=== PATIENT | female | born 1990 | race Caucasian/White ===

== ENCOUNTER 2020-12-03 18:08 | Emergency (ER) | payer BC, SELFPAY ==
--- NOTE | ~2020-12-03 | XR_ITS ---
EXAMINATION: XR chest 2V 12/03/2020 18:32 INDICATION: Chest pain PROCEDURE: 2 view chest COMPARISON: 10/19/2004 FINDINGS: The lungs are clear. The cardiomediastinal silhouette is within normal limits. There are no pleural effusions. There is no pneumothorax suspected. IMPRESSION: 1: NO ACUTE CARDIOPULMONARY DISEASE. Reviewed, dictated and finalized at location A.
[2020-12-03 18:11] VITALS: BP 148/83; PULSE 83; RESP 18; TEMP 36.4; O2SAT 100
--- NOTE | 2020-12-03 18:19 | ECG_ITS ---
Measurements Intervals [facility] Rate: 76 P: 32 NH: 137 QRS: 32 QRSD: 94 T: 33 QT: 370 QTc: 418 Interpretive Statements SINUS RHYTHM INCOMPLETE RIGHT BUNDLE BRANCH BLOCK BASELINE WANDER- V3 BORDERLINE ECG Electronically Signed On 12-03-2020 19:53:05 CDT by José Pena D.O.
[2020-12-03 18:20] VITALS: BP 132/87; PULSE 77; PULSE 78; RESP 18; TEMP 36.7; O2SAT 100
[2020-12-03 18:38] LABS: Basophils Absolute Auto 0.1 K/mm3 (0.0-0.1); Basophils Percent Auto 1.1 % (0.2-1.2); Eosinophils Absolute Auto 0.2 K/mm3 (0-0.3); Eosinophils Percent Auto 2.6 % (0-4.4); Hematocrit 38.9 % (37.0-47.0); Hemoglobin 12.7 g/dL (12.0-15.0); Immature Granulocyte Absolute 0.01 K/mm3 (0.00-0.031); Immature Granulocyte Percent A 0.2 % (0-0.5); Immature Platelet Fraction Pct 16.3 % (0.9-11.2); Lymphocytes Absolute Auto 1.95 K/mm3 (0.9-3.2); Lymphocytes Percent Auto 31.7 % (18.3-44.2); Mean Corpuscular HGB Conc 32.6 g/dl (32-36); Mean Corpuscular Hemoglobin 29.5 pg (26-34); Mean Corpuscular Volume 90.5 fl (80-100); Mean Platelet Volume 13.5 fl (7.4-10.4); Monocytes Absolute Auto 0.6 K/mm3 (0.1-0.6); Monocytes Percent Auto 9.1 % (2.6-8.5); Neutrophils Absolute Auto 3.4 K/mm3 (1.3-6.7); Neutrophils Percent Auto 55.3 % (45.5-73.1); Platelet Count Result 173 k/mm3 (150-375); White Blood Count 6.2 K/mm3 (4.5-10.0)
[2020-12-03 18:46] LABS: INR 0.9; Partial Thromboplastin Time 24.8 SECONDS (22.3-36.8); Prothrombin Time 12.5 Seconds (11.1-14.7)
[2020-12-03 18:48] LABS: Anion Gap 5 mmol/L (8-16); Blood Urea Nitrogen 16 mg/dL (7-17); Calcium 8.8 mg/dL (8.4-10.2); Carbon Dioxide 25 mmol/L (22-30); Chloride 108 mmol/L (98-107); Estimated CRCL calculation 108 ml/min; Estimated Glomerular Filt Rate > 60; Glucose 103 mg/dL (65-105); Potassium 3.6 mmol/L (3.4-5.0); Sodium 138 mmol/L (137-145)
[2020-12-03] MEDS: KETOROLAC 30 MG/ML VIAL (*BKC) IV PUSH (18:57)
[2020-12-03 19:00] LABS: Troponin I < 0.012 ng/mL (0.000-0.034)
[2020-12-03 19:04] LABS: D Dimer 0.27 ug/mL (<0.48)
[2020-12-03 19:20] VITALS: BP 124/82; PULSE 71; RESP 17; O2SAT 100
--- NOTE | 2020-12-03 19:50 | ED.CHESTPAIN ---
HPI - Chest Pain General Chief Complaint: Chest Pain Stated Complaint: chest pain sent from urgent care Time Seen by Provider: 12/03/20 18:19 Source: patient Mode of arrival: ambulatory Limitations: no limitations History of Present Illness HPI narrative: This is a 30-year-old female that presents the emergency department for chest pain. Reports she was seen at the urgent care and sent here for further evaluation. Reports the pain is substernal and sharp in nature. It is worse with movement and relieved with rest. She did take some naproxen this morning with some relief. Denies fever, cough, shortness of breath, or lower extremity edema. Related Data Home Medications Medication Instructions Recorded Confirmed norethindrone-e.estradiol-iron [Lo tablet 12/03/20 Loestrin Fe] sertraline mg 12/03/20 zolpidem 12/03/20 Allergies Allergy/AdvReac Type Severity Reaction Status Date / Time codeine Allergy Mild Unknown Verified 12/03/20 18:14 Penicillins Allergy Mild Nausea Verified 12/03/20 18:14 Review of Systems Review of Systems: Narrative: CONSTITUTIONAL: Denies fever CARDIOVASCULAR: Reports chest pain. Denies palpitations, or edema. RESPIRATORY: Denies cough or dyspnea. All systems reviewed & are unremarkable except as noted in HPI and below PMFSH Past Medical History Medical History (Updated 12/03/20 @ 20:13 by Brooke Kim PA-C) History of anxiety Social History Social History (Updated 12/03/20 @ 19:51 by Brooke Kim PA-C) Smoking status: Current some day smoker Exam Narrative: Exam Narrative: GENERAL: Well-appearing, well-nourished, and in no acute distress. HEAD: Normocephalic, atraumatic. EYES: EOMI. CHEST: Clear to auscultation. No respiratory distress. No wheezes rales or rhonchi. Patient does have anterior, mid chest wall tenderness HEART: Regular rate and rhythm. No murmur heard. Normal peripheral pulses. EXTREMITIES: Normal range of motion. No edema. SKIN: Warm, dry, no rash. NEURO: No focal deficits. Alert and oriented x3. PSYCH: Normal mood and affect Course Vital Signs Vital signs: Vital Signs Temperature 97.6 F 12/03/20 18:11 Pulse Rate 83 12/03/20 18:11 Respiratory Rate 18 12/03/20 18:11 Blood Pressure 148/83 H 12/03/20 18:11 Pulse Oximetry 100 12/03/20 18:11 Temperature 98.1 F 12/03/20 18:20 Pulse Rate 71 12/03/20 19:20 Respiratory Rate 17 12/03/20 19:20 Blood Pressure 124/82 12/03/20 19:20 Pulse Oximetry 100 12/03/20 19:20 MDM - Chest Pain MDM Narrative Medical decision making narrative: Patient presents the emergency department for chest pain. Does appear to be musculoskeletal in nature. Patient is tender in the area. Reports improvement with Toradol. Her vitals are stable. CBC and metabolic panel without concerning findings. Chest x-ray is clear. EKG is without concerning changes and baseline troponin is negative. D-dimer was not elevated. Patient and family updated on case findings. She is stable and felt appropriate for further outpatient evaluation. Her heart score is a 1. She is to follow-up with primary care doctor. She was given warnings to return to the ER Lab Data Attestation: I reviewed the patient's lab results. Result diagrams: 12/03/20 18:26 12/03/20 18:26 Labs: Lab Results 12/03/20 12/03/20 12/03/20 Range/Units 18:26 18:26 18:26 WBC 6.2 (4.5-10.0) K/mm3 RBC 4.30 (4.2-5.4) M/mm3 Hgb 12.7 (12.0-15.0) g/dL Hct 38.9 (37.0-47.0) % MCV 90.5 (80-100) fl MCH 29.5 (26-34) pg MCHC 32.6 (32-36) g/dl RDW 13.0 (11.5-14.5) % Plt Count 173 (150-375) k/mm3 MPV 13.5 H (7.4-10.4) fl Immature Gran % (Auto) 0.2 (0-0.5) % Neut % (Auto) 55.3 (45.5-73.1) % Lymph % (Auto) 31.7 (18.3-44.2) % [place] % (Auto) 9.1 H (2.6-8.5) % Eos % (Auto) 2.6 (0-4.4) % Baso % (Auto) 1.1 (0.2-1.2) % Lymph # (Auto) 1.95
[2020-12-03 20:11] VITALS: BP 119/83; PULSE 68; RESP 17; TEMP 36.5; O2SAT 100
== END 2020-12-03 20:19 | disposition home or self-care (01) ==
PROVIDERS: Physician Assistant; Emergency Provider Emergency Medicine; PCP Internal Medicine
DX: R07.89 Other chest pain (principal); F41.9 Anxiety disorder, unspecified; F17.200 Nicotine dependence, unspecified, uncomplicated; I45.10 Unspecified right bundle-branch block
CPT/HCPCS: 36415; 71046; 80048; 84484; 85025; 85055; 85380; 85610; 85730; 93005; 96374; 99284; J1885

== ENCOUNTER 2022-03-05 16:28 | Emergency (ER) | payer BC, SELFPAY ==
--- NOTE | 2022-03-05 16:29 | ED.URI ---
HPI - URI/Sore Throat General Chief Complaint: Upper Respiratory Infection Stated Complaint: sore throat Time Seen by Provider: 03/05/22 16:46 Source: patient and RN notes reviewed Mode of arrival: ambulatory Limitations: no limitations History of Present Illness HPI Narrative: 31-year-old female presents to the [facility] with complaints of a sore throat for few days. Patient denies fevers, chest pain, abdominal pain. No nausea vomiting or diarrhea. Has been taking Zyrtec, use Flonase 1 time yesterday. MD elicited complaint: sore throat, rhinorrhea and nasal congestion Related Data Home Medications Medication Instructions Recorded Confirmed norethindrone 1 mg-ethinyl 1 tablet PO DAILY 12/03/20 03/05/22 estradiol 10 mcg (24)-iron 10 mcg(2) tablet (Lo Loestrin Fe) sertraline 100 mg tablet 100 mg PO DIRECTED 12/03/20 03/05/22 zolpidem 10 mg tablet 10 mg PO DAILY 12/03/20 03/05/22 Allergies Allergy/AdvReac Type Severity Reaction Status Date / Time codeine Allergy Mild Unknown Verified 03/05/22 16:42 Penicillins Allergy Mild Nausea Verified 03/05/22 16:42 Review of Systems Review of Systems: All systems reviewed & are unremarkable except as noted in HPI and below Constitutional: Constitutional: Reports no additional constitutional complaints, Denies chills and Denies fever(s) Eyes: Eyes: Reports no additional eye complaints ENT: Reports as per HPI Cardiovascular: Cardiovascular: Reports no additional cardiovascular complaints Respiratory: Respiratory: Reports no additional respiratory complaints Gastrointestinal: Gastrointestinal: Reports no additional gastrointestinal complaints Musculoskeletal: Musculoskeletal: Reports no additional musculoskeletal complaints Integumentary/Breasts: Skin/Breast: Reports system reviewed and no additional complaints, except as docu Neurologic: Reports system reviewed and no additional complaints, except as documented Psychiatric: Psychiatric: Reports no additional psychiatric complaints Allergic/Immunologic: Allergic/Immunologic: Reports no additional allergic/immunologic complaints [facility] Past Medical History Medical History (Updated 03/05/22 @ 19:47 by Zoya Kilgore APRN) History of anxiety Surgical History Surgical History (Updated 03/05/22 @ 19:45 by Zoya Kilgore APRN) No pertinent past surgical history Social History Social History (Updated 12/03/20 @ 19:51 by Brooke Kim PA-C) Smoking status: Current some day smoker Comments At the time of my signature, I reviewed and agree with the nursing past medical, surgical, social, and family history. There is no relevant family history pertinent to the patient complaint. Exam Const: General: healthy appearing, no acute distress and alert Nutritional Appearance: well nourished Orientation/consciousness: patient oriented x3 Limitations: no limitations HENMT: Head: normal to inspection Ears: external ears normal General nose exam: Normal external nose present Face and sinus: normal facial exam Throat: posterior oropharynx normal and uvula midline Eyes: General: appearance normal, both eyes and all related structures Pupils: Equal, round and reactive pupils present Neck: Neck: normal visual inspection, no lymphadenopathy and no meningeal signs Chest: Chest palpation & inspection: normal inspection of the chest Resp: Effort & Inspection: normal respiratory effort and no use of accessory muscles Auscultation: clear to auscultation bilaterally, no crackles, no rales, no rhonchi and no wheezes Cardio: Rate: regular rate Rhythm: regular rhythm Back/Spine/Pelvis: Cervical Spine: normal cervical lordosis Thoracic/Lumbar Spine: thoracic and lumbar spine normal to inspection Skin: General skin exam: normal color Rashes: no rashes Wounds: no wounds Neuro: General: patient oriented x3, moves all extremities, no meningeal signs and no focal motor deficits Cranial nerves: Yes Equal, round
[2022-03-05 16:32] VITALS: BP 137/77; PULSE 84; RESP 16; TEMP 36.3; O2SAT 100
== END 2022-03-05 17:32 | disposition home or self-care (01) ==
PROVIDERS: Emergency Provider Nurse Practitioner; PCP Internal Medicine
DX: J02.9 Acute pharyngitis, unspecified (principal); J06.9 Acute upper respiratory infection, unspecified; F17.200 Nicotine dependence, unspecified, uncomplicated; F41.9 Anxiety disorder, unspecified
CPT/HCPCS: 87081; 87880; 99213; G0463

== ENCOUNTER 2022-12-27 19:36 | Emergency (ER) | payer BC, SELFPAY ==
[2022-12-27] VITALS (19 sets, daily range): BP systolic 126–171; BP diastolic 65–109; PULSE 57–92; RESP 14–24; TEMP 37.6; O2SAT 99–100
--- NOTE | 2022-12-27 19:50 | PC.NURSE ---
Dr. Campo at bedside to assess pt.
[2022-12-27] MEDS: diphenhydrAMINE HCl INJ 50 MG/ML VIAL IV PUSH (20:01)
[2022-12-27] MEDS: SODIUM CHLORIDE 0.9% IV 1,000 ML 999 ML IV CONT (20:03)
[2022-12-27] MEDS: FAMOTIDINE 20 MG/2 ML VIAL 40 MG IV PUSH (20:03)
--- NOTE | 2022-12-27 20:06 | ED.GENADULT ---
HPI - General Adult General Chief complaint: Allergic Reaction Stated complaint: hives Time Seen by Provider: 12/27/22 19:45 History of Present Illness HPI narrative: A 32-year-old female presenting ED with an allergic reaction. a dinner at 5:36 a.m.. About 45 minutes later she developed diffuse hives over her face neck stomach and back. She believes it was due to strep although she has not had a reaction to that in the past. She has no new exposures to lotions etc.. Patient denies difficulty breathing, throat swelling, nausea vomiting or diarrhea. She does say that she has some chest heaviness although she says that she has very bad anxiety. Related Data Home Medications Medication Instructions Recorded Confirmed norethindrone 1 mg-ethinyl 1 tablet PO DAILY 12/03/20 03/05/22 estradiol 10 mcg (24)-iron 10 mcg(2) tablet (Lo Loestrin Fe) sertraline 100 mg tablet 100 mg PO DIRECTED 12/03/20 03/05/22 zolpidem 10 mg tablet 10 mg PO DAILY 12/03/20 03/05/22 Allergies Allergy/AdvReac Type Severity Reaction Status Date / Time codeine Allergy Mild Unknown Verified 12/27/22 20:08 Penicillins Allergy Mild Nausea Verified 12/27/22 20:08 [facility] Past Medical History Medical History (Updated 12/27/22 @ 20:11 by Jv Campo MD) History of anxiety Surgical History Surgical History (Updated 03/05/22 @ 19:45 by Zoya Kilgore APRN) No pertinent past surgical history Social History Social History (Updated 12/03/20 @ 19:51 by Brooke Kim PA-C) Smoking status: Current some day smoker Exam Narrative: APPEARANCE: No apparent distress. Head: atraumatic. EYES: EOMI, NOSE: Atraumatic NECK: Trachea midline RESPIRATORY: No increased rate of breathing , no wheezing CARDIOVASCULAR: RRR, no peripheral edema ABDOMINAL: Non-distended, soft tender no guarding or rebound MUSCULOSKELETAl: No obvious deformities NEURO: Alert. Moving 4/4 extremities SKIN:: Diffuse urticaria over the face neck chest and back. PSYCHIATRIC: Normal affect Course Vital Signs Vital signs: Vital Signs Temperature 99.6 F 12/27/22 19:37 Pulse Rate 92 12/27/22 19:37 Respiratory Rate 24 H 12/27/22 19:37 Blood Pressure 171/109 H 12/27/22 19:37 Pulse Oximetry 100 12/27/22 19:37 Oxygen Delivery Room Air 12/27/22 19:37 Temperature 99.6 F 12/27/22 19:37 Pulse Rate 60 12/27/22 21:17 Respiratory Rate 20 12/27/22 21:17 Blood Pressure 138/77 12/27/22 21:17 Pulse Oximetry 99 12/27/22 21:17 Oxygen Delivery Room Air 12/27/22 19:37 Medical Decision Making MDM Narrative Medical decision making narrative: -Presentation: 32-year-old female presenting with allergic reaction. She has cutaneous findings but no other evidence of anaphylaxis. She will be treated with steroids Pepcid and Benadryl. I did off for epinephrine but has the patient has severe anxiety she decided to hold off to see if the other medications would work 1st. -DDX includes but is not limited to: And anaphylaxis, allergic reaction, idiopathic urticaria -Co-morbidities complicating care: anxiety -Social determinants of health: patient works for [employer], lives with her mother Katelin -External Chart Review: none -Hx from independent Sources: mother at bedside -Discussion of Management/Consultants: none -Independent interpretation of studies: none Dx tests considered but not ordered: none -Procedures: none -Interventions: dexamethasone, Pepcid, Benadryl, 1 L normal saline -Shared decision making / Disposition: patient was monitored for several hours with improvement of her Symptoms. She will be discharged home with Benadryl and an EpiPen.. -RX EpiPen, benadryl Vital Signs Vital Signs: Vital Signs Temperature 99.6 F 12/27/22 19:37 Pulse Rate 92 12/27/22 19:37 Respiratory Rate 24 H 12/27/22 19:37 Blood Pressure 171/109 H 12/27/22 19:37 Pulse Oximetry 100 12/27/22 19:37 Oxygen Delivery Ro
== END 2022-12-27 21:50 | disposition home or self-care (01) ==
LOC: ANHED 20:37
PROVIDERS: Emergency Provider Emergency Medicine; PCP Internal Medicine
DX: T78.40XA Allergy, unspecified, initial encounter (principal); F41.9 Anxiety disorder, unspecified
CPT/HCPCS: 96361; 96374; 96375; 99284; J1100; J1200; J7030

== ENCOUNTER 2024-01-13 11:38 | Emergency (ER) | payer BC, SELFPAY ==
--- NOTE | ~2024-01-13 | XR_ITS ---
XR foot LT min 3V 01/13/2024 11:56 Indication: Left foot pain Procedure: 4 views left foot Comparison: No prior studies for comparison. Findings: There is anatomic alignment. No fracture, subluxation or dislocation. Lisfranc joint intact . No focal soft tissue abnormality. No foreign bodies. Impression: 1: No significant bone or joint abnormality. Reviewed, dictated and finalized at location B. Impression: 1: No significant bone or joint abnormality.
--- NOTE | 2024-01-13 11:38 | ED.LOWEXIN ---
HPI - Extremity Injury (Lower) General Chief Complaint: Extremity Injury, Lower Stated Complaint: Left Foot Pain Time Seen by Provider: 01/13/24 11:38 Source: patient Mode of arrival: ambulatory Limitations: no limitations History of Present Illness HPI Narrative: Bridgette is a 33-year-old female patient presenting to the clinic today with complaints of toe/distal foot pain. She reports that she was gardening over the weekend and on her knees a lot and had her toes bent forward. She is complaining of pain to the toes as well as to the distal metatarsals with some swelling. Related Data Home Medications Medication Instructions Recorded Confirmed zolpidem 10 mg tablet 10 mg PO DAILY 12/03/20 01/13/24 bupropion HCl 100 mg tablet,12 hr 1 mg PO DIRECTED 01/13/24 01/13/24 sustained-release escitalopram oxalate 10 mg tablet 10 mg DIRECTED 01/13/24 01/13/24 hydroxyzine HCl 25 mg tablet 25 mg DIRECTED 01/13/24 01/13/24 norethindrone 1 mg-ethinyl 1 tablet DIRECTED 01/13/24 01/13/24 estradiol 20 mcg (24)-iron 75 mg (4) tablet (Aurovela 24 Fe) Allergies Allergy/AdvReac Type Severity Reaction Status Date / Time codeine Allergy Mild Unknown Verified 12/27/22 20:08 Penicillins Allergy Mild Nausea Verified 12/27/22 20:08 Review of Systems Review of Systems: Pertinent positives per HPI. Patient denies any fever, chills, rash, headache, visual changes, dizziness, cough, runny nose, sore throat, shortness of breath, chest pain, palpitations, nausea, vomiting, diarrhea, constipation, abdominal pain, or any urinary issues. [facility] Past Medical History Medical History History of anxiety Surgical History Surgical History No pertinent past surgical history Social History Social History Smoking status: Current some day smoker Comments At the time of my signature, I reviewed and agree with the nursing past medical, surgical, social, and family history. There is no relevant family history pertinent to the patient complaint. Exam Narrative: General: Well-developed, well nourished, in no apparent distress Head: Normocephalic, atraumatic. Cardio: Regular rate and rhythm, s1 and s2 normal, no murmur appreciated. Resp: Clear to auscultation bilaterally, no rhonchi, rales, wheezing or rubs. Musculoskeletal: No deformity, tender to palpation over the left distal metatarsals and phalanges, mild swelling when compared to the right foot, grossly normal range of motion, muscle strength strong and equal, peripheral pulse strong, no edema, no cyanosis, normal gait and station Course Course Emergency Course: Portions of this record may have been created with voice recognition software. Level of Care: Express Care Visit Vital Signs Vital signs: Vital signs reviewed MDM - Extremity Injury (Lower) MDM Narrative Medical decision making narrative: At the time of visit patient is resting comfortably on the exam table. Patient appears to be nontoxic. Diagnostics: X-rays of the left foot are negative for any sign of fracture or malalignment. Plan: I suspect patient has toe/foot sprain. Supportive measures were discussed with the patient and they voiced understanding discharge instructions and agrees to treatment plan. Return precautions reviewed Differential Diagnosis Differential diagnosis: Likely fracture of toe and other (Foot sprain, toe sprain) Imaging Data Radiologist's impression: ITS Impressions Foot X-Ray 01/13/24 12:02 Impression: 1: No significant bone or joint abnormality. Discharge Plan Discharge Clinical Impression: Foot sprain Qualifiers: Encounter type: initial encounter Laterality: left Qualified Code(s): S93.602A - Unspecified sprain of left foot, initial encounter Patient Disposition: H
[2024-01-13 11:45] VITALS: BP 158/96; PULSE 84; RESP 16; TEMP 36.6; O2SAT 99
== END 2024-01-13 12:11 | disposition home or self-care (01) ==
PROVIDERS: Emergency Provider Nurse Practitioner Family; PCP Internal Medicine
DX: S93.602A Unspecified sprain of left foot, initial encounter (principal); X50.1XXA Overexertion from prolonged static or awkward postures, initial encounter; Y93.H2 Activity, gardening and landscaping; F41.9 Anxiety disorder, unspecified; F17.200 Nicotine dependence, unspecified, uncomplicated
CPT/HCPCS: 73630; 99213; G0463

== ENCOUNTER 2024-01-19 22:15 | Emergency (ER) | payer BC, SELFPAY ==
[2024-01-19 22:27] VITALS: BP 146/92; PULSE 98; RESP 20; TEMP 36.2; O2SAT 96
--- NOTE | 2024-01-20 02:06 | ED.LOWEXIN ---
HPI - Extremity Injury (Lower) General Chief Complaint: Extremity Injury, Lower Stated Complaint: left foot pain Time Seen by Provider: 01/20/24 00:17 Source: patient Mode of arrival: ambulatory Limitations: no limitations History of Present Illness HPI Narrative: This is a 33 year old female that presents to the ER for left foot pain after an injury sustained just prior to arrival. Reports she was chasing her pet and felt a pop with immediate pain to the left foot dorsal surface. Denies decreased ROM or numbness. Related Data Home Medications Medication Instructions Recorded Confirmed zolpidem 10 mg tablet 10 mg PO DAILY 12/03/20 01/13/24 bupropion HCl 100 mg tablet,12 hr 1 mg PO DIRECTED 01/13/24 01/13/24 sustained-release escitalopram oxalate 10 mg tablet 10 mg DIRECTED 01/13/24 01/13/24 hydroxyzine HCl 25 mg tablet 25 mg DIRECTED 01/13/24 01/13/24 norethindrone 1 mg-ethinyl 1 tablet DIRECTED 01/13/24 01/13/24 estradiol 20 mcg (24)-iron 75 mg (4) tablet (Aurovela 24 Fe) Allergies Allergy/AdvReac Type Severity Reaction Status Date / Time codeine Allergy Mild Unknown Verified 01/20/24 00:09 Penicillins Allergy Mild Nausea Verified 01/20/24 00:09 Review of Systems Review of Systems: CONSTITUTIONAL: Denies fever MUSCULOSKELETAL: Reports joint pain, and myalgia. NEUROLOGIC: Denies numbness, or weakness. All systems reviewed & are unremarkable except as noted in HPI and below PMFSH Past Medical History Medical History History of anxiety Surgical History Surgical History No pertinent past surgical history Social History Social History Smoking status: Current some day smoker Exam Narrative: GENERAL: Well-appearing, well-nourished, and in no acute distress. HEAD: Normocephalic, atraumatic. EYES: EOMI. EXTREMITIES: Normal range of motion. No edema or obvious deformity. Normal DP pulse. Normal sensation SKIN: Warm, dry, no rash. NEURO: No focal deficits. Alert and oriented x3. PSYCH: Normal mood and affect Course Vital Signs Vital signs: Vital Signs Temperature 97.1 F L 01/19/24 22:27 Pulse Rate 98 01/19/24 22:27 Respiratory Rate 20 01/19/24 22:27 Blood Pressure 146/92 H 01/19/24 22:27 Pulse Oximetry 96 01/19/24 22:27 Oxygen Delivery Room Air 01/19/24 22:27 Temperature 97.1 F L 01/19/24 22:27 Pulse Rate 98 01/19/24 22:27 Respiratory Rate 20 01/19/24 22:27 Blood Pressure 146/92 H 01/19/24 22:27 Pulse Oximetry 96 01/19/24 22:27 Oxygen Delivery Room Air 01/19/24 22:27 Procedures Orthopedic Splinting/Casting Injury #1: Splinting/Casting Date: 01/20/24 Splinting/Casting Time: 02:25 Side: left Lower Extremity Injury Location: foot Lower Extremity Immobilizer: Junior wrap Pre-Procedure Neuro Vascular Exam: normal Post-Procedure Neuro Vascular Exam: normal Other Orthopedic Equipment: crutches MDM - Extremity Injury (Lower) MDM Narrative Medical decision making narrative: Patient presents to the emergency department for left foot pain after an injury today. She is neurovascularly intact. Left foot x-rays without acute osseous abnormalities. Patient updated on her workup and agrees with plan of care. Instructed on care of foot sprain. She is to follow up with her primary provider. She was given warnings to return to the ER Differential Diagnosis Differential diagnosis: Likely other (foot fracture, foot sprain) Imaging Data My impression: Left foot x-ray: No acute osseous abnormalities Critical Care Time Critical Care Time Critical Care Time: No Discharge Plan Discharge Clinical Impression: Foot sprain Qualifiers: Encounter type: initial encounter Laterality: left Qualified Code(s): S93.602A -
[2024-01-20 03:01] VITALS: BP 139/75; PULSE 67; RESP 15; TEMP 36.8; O2SAT 99
== END 2024-01-20 03:02 | disposition home or self-care (01) ==
PROVIDERS: Emergency Provider Physician Assistant
DX: S93.602A Unspecified sprain of left foot, initial encounter (principal); F41.9 Anxiety disorder, unspecified; F17.200 Nicotine dependence, unspecified, uncomplicated; X50.9XXA Other and unspecified overexertion or strenuous movements or postures, initial encounter
CPT/HCPCS: 73630; 99283

== ENCOUNTER 2024-02-09 16:56 | Outpatient (CLI) | payer BC, SELFPAY | END 2024-02-09 16:57 | disposition home or self-care (01) | LOC: ANHLAB 16:57 | PROVIDERS: Visit Provider Student in an Organized Health Care Education/Training Program | DX: R23.2 Flushing (principal) | CPT/HCPCS: 36415; 84443 ==

== ENCOUNTER 2024-07-20 19:28 | Emergency (ER) | payer BC, SELFPAY ==
--- NOTE | ~2024-07-20 | XR_ITS ---
EXAMINATION: XR chest 2V Exam Date/Time: 07/20/2024 19:35 CDT HISTORY: cough, chest pain with inspiration Comparison: 12/03/2020. RESULT: Lines, tubes, and devices: None. Lungs and pleura: Clear. Cardiomediastinal silhouette: Stable. Other: No acute osseous or upper abdominal finding. IMPRESSION: No acute cardiopulmonary process. Reviewed, dictated and finalized at location K.
--- NOTE | 2024-07-20 19:35 | ED.URI ---
HPI - URI/Sore Throat General Chief Complaint: Upper Respiratory Infection Stated Complaint: Sinus Time Seen by Provider: 07/20/24 20:05 History of Present Illness HPI Narrative: Patient presents with complaints of 10 days of sinus congestion, she reports a few days ago she felt as though it moved into her chest. She now reports sinus pain and pressure, chest congestion, productive cough. She reports chills yesterday, says she is feeling worse instead of better. She has been taking multiple [id number] medications with moderate relief. She is not in any distress at this time Related Data Home Medications Medication Instructions Recorded Confirmed zolpidem 10 mg tablet 10 mg PO HS 12/03/20 07/20/24 bupropion HCl 100 mg tablet,12 hr 1 mg PO DIRECTED 01/13/24 07/20/24 sustained-release escitalopram oxalate 10 mg tablet 10 mg PO DIRECTED 01/13/24 07/20/24 hydroxyzine HCl 25 mg tablet 25 mg PO DIRECTED 01/13/24 07/20/24 Allergies Allergy/AdvReac Type Severity Reaction Status Date / Time codeine Allergy Mild Unknown Verified 07/20/24 19:46 Penicillins Allergy Mild Nausea Verified 07/20/24 19:46 shrimp Allergy Anaphylactic Verified 07/20/24 20:11 Shock Review of Systems Review of Systems: All systems reviewed & are unremarkable except as noted in HPI and below Constitutional: Constitutional: Reports no additional constitutional complaints ENT: Reports system reviewed and no additional complaints, except as documented, Reports as per HPI, Reports sinus pain and Reports sinus pressure Cardiovascular: Cardiovascular: Reports no additional cardiovascular complaints Respiratory: Respiratory: Reports no additional respiratory complaints, Reports chest congestion and Reports cough Gastrointestinal: Gastrointestinal: Reports no additional gastrointestinal complaints [facility], [facility] Past Medical History Medical History (Updated 07/20/24 @ 20:10 by Amira Sosa APRN) History of anxiety Surgical History Surgical History H/O foot surgery Social History Social History Smoking status: Current some day smoker Alcohol intake: current Substance use: never Do You Feel Safe in your Home?: Yes Lack of Transportation: No Lack of Food: Never True Current Housing: I Have Housing Concerned About Future Housing: No Difficulty Paying Gas/Electric Bills: No Difficulty Paying for Meds: No Currently Unemployed: No Education: Trade/Vocational Certificate Difficulty w/ Childcare or Family Care: No Living arrangements: with family Occupation/Education: occupation Additional occupation/education comments: [employer] Gender identity (if verbalized by the patient): Female Exam Const: General: cooperative, no acute distress, alert and awake Orientation/consciousness: oriented to person, oriented to place and oriented to time HENMT: Head: normal to inspection Ears: TM abnormal dull and with fluid behind the TM Face/Nose/Sinus: sinus tenderness Mouth: Yes moist mucous membranes Throat: posterior oropharynx normal Resp: Effort & Inspection: normal respiratory effort and able to speak in complete sentences Auscultation: clear to auscultation bilaterally, no crackles, no rales, no rhonchi and no wheezes Cardio: Palpation: normal PMI Rate: regular rate Rhythm: regular rhythm Heart sounds: S1 normal heart sound present and S2 normal heart sound present Neuro: General: oriented to person, oriented to place and oriented to time Cranial nerves: Yes CN's II-XII intact bilaterally Psych: Appearance: grossly normal Thought process: Normal thought process present Insight: Good insight present (Psych) Judgement: Good judgement present (Psych) Course Course Level of Care: Express Care Visit MDM - URI/Sore Throat MDM Narrative Medical decision making narrative: Patient nontoxic appearing. Negative chest x-ray. History and exam consistent with sinusitis. Treat his same. Follow with primary care provider. Emergency department for new or worse symptoms. Discharge instructions reviewed with patient, as well as provided in writing per nursing staff. The instructions also include specific and strict return/GO TO THE ER as well as f/u information. All questions have been answered, and the patient deny any further questions with discharge and discharge plan. Some parts of this dictation were generated by voice recognition software and may contain typographical and/or grammatical inaccuracies. Differential Diagnosis Differential diagnosis: Likely upper respiratory infection, sinusitis, viral infection and influenza Imaging Data Attestation: I personally reviewed and interpreted this imaging study as follows: My impression: Negative Radiologist's impression: No acute cardiopulmonary process Discharge Plan Discharge Clinical Impression: Sinusitis Qualifiers: Sinusitis location: maxillary Chronicity: acute Recurrence: not specified as recurrent Qualified Code(s): J01.00 - Acute maxillary sinusitis, unspecified Patient Disposition: Home, Self-Care Condition: Stable Instructions: Antibiotic Form, Sinusitis (ED) Additional Instructions: Take medications as prescribed. Follow with primary care provider. Emergency department for new or worse symptoms Patient Language: Bulgarian Prescriptions: New doxycycline monohydrate 100 mg capsule 100 mg PO BID Qty: 14 0RF doxycycline monohydrate 100 mg capsule 100 mg PO BID Qty: 14 0RF No Action bupropion HCl 100 mg tablet sustained-release 12 hr 1 mg PO DIRECTED escitalopram oxalate 10 mg tablet 10 mg PO DIRECTED hydroxyzine HCl 25 mg tablet 25 mg PO DIRECTED epinephrine 0.3 mg/0.3 mL auto-injector 0.3 mg IM ONCE Qty: 2 0RF Rx Instructions: as a single dose; may repeat once diphenhydramine HCl [Benadryl] 25 mg capsule 25 mg PO TID PRN (Reason: allergic reaction) Qty: 30 0RF zolpidem 10 mg tablet 10 mg PO HS Aurovela 24 Fe 1 mg-20 mcg (24)/75 mg (4) tablet 1 tablet PO ONCE Qty: 84 3RF Follow-up/Referrals: Joseph,LISA Pool [Primary Care Provider] - 2 Weeks
== END 2024-07-20 20:15 | disposition home or self-care (01) ==
PROVIDERS: Emergency Provider Nurse Practitioner Family; PCP Physician Assistant
DX: J01.00 Acute maxillary sinusitis, unspecified (principal); F17.200 Nicotine dependence, unspecified, uncomplicated; F41.9 Anxiety disorder, unspecified
CPT/HCPCS: 71046; 99213; G0463

== ENCOUNTER 2024-08-24 08:08 | Emergency (ER) | payer BC, SELFPAY ==
--- NOTE | 2024-08-24 08:10 | ED_ITS ---
HPI - URI/Sore Throat General Chief Complaint: Upper Respiratory Infection Stated Complaint: Cough Time Seen by Provider: 08/24/24 08:09 Source: patient Mode of arrival: ambulatory Limitations: no limitations History of Present Illness HPI Narrative: Patient is a 34-year-old female who presents with 3 days of cough that is worse at night, body aches and chills. Patient reports cough is intermittently productive. Patient reports coughing fits. Has been taking Tylenol and ibuprofen. Denies any nausea, vomiting, diarrhea. Related Data Home Medications Medication Instructions Recorded Confirmed zolpidem 10 mg tablet 10 mg PO HS 12/03/20 08/24/24 bupropion HCl 100 mg tablet,12 hr 1 mg PO DIRECTED 01/13/24 08/24/24 sustained-release escitalopram oxalate 10 mg tablet 10 mg PO DIRECTED 01/13/24 08/24/24 hydroxyzine HCl 25 mg tablet 25 mg PO DIRECTED 01/13/24 08/24/24 lisinopril 20 mg tablet 20 mg PO DAILY 08/24/24 08/24/24 Allergies Allergy/AdvReac Type Severity Reaction Status Date / Time codeine Allergy Mild Unknown Verified 08/24/24 08:14 Penicillins Allergy Mild Nausea Verified 08/24/24 08:14 shrimp Allergy Anaphylactic Verified 08/24/24 08:14 Shock Review of Systems Review of Systems: All systems reviewed & are unremarkable except as noted in HPI and below Constitutional: Constitutional: Reports body ache(s), Reports chills, Denies fatigue, Denies fever(s), Denies headache(s), Denies malaise and Denies weakness Eyes: Eyes: Denies blurry vision, Denies itchy eyes and Denies loss of vision ENT: Denies otalgia, Denies headache(s), Reports nasal congestion, Denies sinus pain and Denies sore throat Cardiovascular: Cardiovascular: Denies chest pain, Denies irregular heart rhythm and Denies dyspnea Respiratory: Respiratory: Reports cough and Denies dyspnea Gastrointestinal: Gastrointestinal: Denies abdominal pain, Denies diarrhea, Denies nausea and Denies vomiting Musculoskeletal: Musculoskeletal: Denies back pain, Denies myalgias and Denies arthralgias Integumentary/Breasts: Skin/Breast: Denies pruritus and Denies rash Neurologic: Denies headache(s), Denies loss of vision and Denies weakness Psychiatric: Psychiatric: Reports no additional psychiatric complaints Endocrine: Endocrine: Denies fatigue Allergic/Immunologic: Allergic/Immunologic: Denies itchy eyes PMFSH Past Medical History Medical History History of anxiety Surgical History Surgical History H/O foot surgery Social History Social History Smoking status: Current some day smoker Alcohol intake: current Substance use: never Do You Feel Safe in your Home?: Yes Lack of Transportation: No Lack of Food: Never True Current Housing: I Have Housing Concerned About Future Housing: No Difficulty Paying Gas/Electric Bills: No Difficulty Paying for Meds: No Currently Unemployed: No Education: Trade/Vocational Certificate Difficulty w/ Childcare or Family Care: No Living arrangements: with family Occupation/Education: occupation Additional occupation/education comments: [employer] Gender identity (if verbalized by the patient): Female Comments At time of signature, agree with nursing past medical, surgical, social and family history. There is no relevant family history pertinent to the presenting complaint. Exam Const: General: cooperative, healthy appearing, comfortable, no acute distress and well nourished Nutritional Appearance: well nourished Orientation/consciousness: patient oriented x3 Limitations: no limitations HENMT: Head: normal to inspection, normocephalic and atraumatic Ears: hearing grossly normal bilaterally, external ears normal, TM's normal bilaterally, EAC's normal and no periauricular adenopathy Face/Nose/Sinus: Normal external nose present, Abnormal mucous membranes and turbinates present erythematous bilateral and diffuse, normal facial exam, sinuses nontender and face symmetric Face and sinus: normal facial exam, sinuses nontender and face symmetric Mouth: Yes Normal oral and palatal mucosa present, Yes lip normal, Yes tongue normal, Yes Normal salivary glands and ducts present, Yes oropharynx normal and Yes moist mucous membranes Teeth and gingiva: dentition normal Throat: posterior oropharynx normal, tonsils normal, uvula midline and postnasal drainage Eyes: General: appearance normal, both eyes and all related structures Alignment and Position: alignment normal and position normal Periorbital: periorbital findings normal Eyelids: eyelids normal Pupils: Equal, round and reactive pupils present Neck: Neck: normal visual inspection, full ROM, no lymphadenopathy and supple Chest: Chest palpation & inspection: normal inspection of the chest and normal palpation of entire chest wall Resp: Effort & Inspection: normal respiratory effort and able to speak in complete sentences Auscultation: clear to auscultation bilaterally, no crackles, no rales, no rhonchi and no wheezes Cardio: Rate: regular rate Rhythm: regular rhythm Heart sounds: S1 normal heart sound present and S2 normal heart sound present GI: Inspection: normal to inspection Skin: General skin exam: normal color and no rashes or lesions noted Neuro: General: patient oriented x3 and moves all extremities Cranial nerves: Yes Equal, round and reactive pupils present Speech: normal speech Gait exam (Neuro): Normal gait present Extrem: General: normal to inspection, full ROM and no edema Psych: Appearance: grossly normal and well kempt Mental Status: mental status grossly normal Speech and movement: Normal speech and movement present Affect: normal affect Attitude: cooperative Thought process: Normal thought process present Course Course Emergency Course: Patient is aware of diagnosis, understands and agrees to treatment plan. Anticipatory guidance given. Patient agrees to follow-up as directed and is aware of reasons to seek care at the emergency department. Portions of this record may have been created with voice recognition software Level of Care: Express Care Visit Vital Signs Vital signs: Vital Signs Temperature 36.6 C 08/24/24 08:16 Pulse Rate 94 08/24/24 08:16 Respiratory Rate 16 08/24/24 08:16 Blood Pressure 141/89 H 08/24/24 08:16 Pulse Oximetry 98 08/24/24 08:16 Oxygen Delivery Room Air 08/24/24 08:16 Temperature 36.6 C 08/24/24 08:17 Pulse Rate 94 08/24/24 08:17 Respiratory Rate 16 08/24/24 08:17 Blood Pressure 141/89 H 08/24/24 08:17 Pulse Oximetry 98 08/24/24 08:17 Oxygen Delivery Room Air 08/24/24 08:17 Reviewed MDM - URI/Sore Throat MDM Narrative Medical decision making narrative: Discharge instructions reviewed with patient, as well as provided in writing per nursing staff. The instructions also include specific and strict return/GO TO THE ER as well as f/u information. All questions have been answered, and the patient deny any further questions with discharge and discharge plan. Differential diagnosis considered: Viveros virus, strep pharyngitis, allergic rhinitis, upper respiratory tract infection, sinusitis, rhinosinusitis, nasopharyngitis. viral pharyngitis, otitis media, otitis externa, otitis effusion, foreign body, cerumen impaction, viral syndrome, and influenza.? Exam findings show no acute concerns or changes; patient is non-toxic appearing and is in no distress.? Patient is appropriate for outpatient treatment and follow- up.? Medical Records Attestation: I reviewed the patient's medical records. Lab Data Attestation: I reviewed the patient's lab results. Labs: Lab Results 08/24/24 Range/Units 08:41 POC Influenza A Ag Negative (Negative) POC Influenza B Ag Negative (Negative) POC SARS CoV-2 Ag Negative (Negative) Discharge Plan Discharge Clinical Impression: Upper respiratory infection Qualifiers: URI type: unspecified viral URI Qualified Code(s): J06.9 - Acute upper respiratory infection, unspecified Patient Disposition: Home, Self-Care Condition: Stable Instructions: Upper Respiratory Infection (ED) Additional Instructions: Your Covid and flu are both negative Your symptoms are likely due to a viral illness, which is not treated with antibiotics. Viral symptoms can be present for up to a few weeks. -Alternate Tylenol and Motrin per package directions for fever or pain. -Antihistamine medication such as Benadryl/Zyrtec at night and Claritin/Kiley during the day can help improve symptoms. -Use Flonase twice a day for 5 days then daily to help reduce the inflammation and dry up your sinuses. -You can also use Sudafed behind the pharmacy counter(12 or 24 hour). Be sure to drink plenty of water with these medications at least 8 ounces with every dose and it is important to drink 8 to 10 glasses of water per day. Water is a natural decongestant -Eat and drink things that are easy to swallow, like tea or soup, or popsicles. -Oral rinses such as: Salt water gargles and/or may use topical anesthetic (eg. Chloraseptic spray) or lozenges to relieve dryness or throat pain). -Frequent hand washing or hand depot agent is one of the best ways to prevent spread of infection. -Using a vaporizer or humidifier at night will also help thin secretions and help with coughing up phlegm. -Follow up with primary care provider in 3-5 days if condition is not improving - For new or worsening symptoms go directly to the nearest ER Your blood pressure was elevated above 120/80 today at Urgent Care. This puts you above the threshold for follow up visit with a primary care provider. High blood pressure does not usually cause any symptoms, however it may lead to kidney failure, stroke, heart disease just to name a few if untreated . Many people are anxious when seeing a provider or nurse. As a result, you are not diagnosed with hypertension at this time unless your blood pressure is persistently high at two office visits at least one week apart. Some things that can help lower blood pressure are lifestyle modifications, such as light exercise, decreased salt in diet, and weight loss. It is important to follow up with a PCP about this within 1 week. Prescriptions: New benzonatate 100 mg capsule 100 mg PO BID PRN (Reason: cough) Qty: 14 0RF albuterol sulfate 90 mcg/actuation HFA aerosol inhaler 2 puff inhalation QID PRN (Reason: shortness of breath or wheezing) Qty: 6.7 0RF (DME) Aerochamber MV Spacer See Rx Instructions .Route Qty: 1 0RF Rx Instructions: As directed No Action bupropion HCl 100 mg tablet sustained-release 12 hr 1 mg PO DIRECTED escitalopram oxalate 10 mg tablet 10 mg PO DIRECTED hydroxyzine HCl 25 mg tablet 25 mg PO DIRECTED lisinopril 20 mg tablet 20 mg PO DAILY epinephrine 0.3 mg/0.3 mL auto-injector 0.3 mg IM ONCE Qty: 2 0RF Rx Instructions: as a single dose; may repeat once diphenhydramine HCl [Benadryl] 25 mg capsule 25 mg PO TID PRN (Reason: allergic reaction) Qty: 30 0RF zolpidem 10 mg tablet 10 mg PO HS Aurovela 24 Fe 1 mg-20 mcg (24)/75 mg (4) tablet 1 tablet PO ONCE Qty: 84 3RF Follow-up/Referrals: Joseph,LISA Pool [Primary Care Provider] - 3 Days Time of Disposition: 08:56
[2024-08-24 08:16] VITALS: BP 141/89; PULSE 94; RESP 16; TEMP 36.6; O2SAT 98
[2024-08-24 08:17] VITALS: BP 141/89; PULSE 94; RESP 16; TEMP 36.6; O2SAT 98
[2024-08-24 08:43] LABS: EDCOVIDSCREEN Negative (Negative); EDINFLUASCREEN Negative (Negative); EDINFLUBSCREEN Negative (Negative)
== END 2024-08-24 09:10 | disposition home or self-care (01) ==
PROVIDERS: Emergency Provider Nurse Practitioner Family; PCP Physician Assistant
DX: J06.9 Acute upper respiratory infection, unspecified (principal); Z20.822 Contact with and (suspected) exposure to COVID-19; F41.9 Anxiety disorder, unspecified; F17.200 Nicotine dependence, unspecified, uncomplicated
CPT/HCPCS: 87426; 87804; 99213; G0463

== ENCOUNTER 2024-08-26 08:08 | Emergency (ER) | payer BC, SELFPAY ==
--- NOTE | ~2024-08-26 | XR_ITS ---
EXAMINATION: XR chest 2V DATE: 08/26/2024 08:29 INDICATION: Cough and shortness of breath. TECHNIQUE: Frontal and lateral views of the chest were obtained. COMPARISON: Chest 2 views 07/20/2024 FINDINGS: There are airspace opacities in right lower lobe, consistent with pneumonia. No pleural eff usion or pneumothorax. The heart size is normal. IMPRESSION: 1. Right lower lobe pneumonia. Reviewed, dictated and finalized at location A. [facility] [employer]
--- NOTE | 2024-08-26 08:12 | ED_ITS ---
HPI - URI/Sore Throat General Chief Complaint: Upper Respiratory Infection Stated Complaint: cough,breathing issue Time Seen by Provider: 08/26/24 08:09 Source: patient Mode of arrival: ambulatory Limitations: no limitations History of Present Illness HPI Narrative: Bridgette is a 34-year-old female patient presenting to the clinic today with complaints of cough and shortness of breath times x6 days. She reports pro ductive cough with green-yellow phlegm. Was seen in the clinic 2 days ago and given prescription for Tessalon Perles and albuterol inhaler. At that time her COVID and influenza testing was negative. She denies any fevers, chills, or body aches. Does have some increased shortness of breath. MD elicited complaint: sore throat and nasal congestion Related Data Home Medications Medication Instructions Recorded Confirmed zolpidem 10 mg tablet 10 mg PO HS 12/03/20 08/26/24 bupropion HCl 100 mg tablet,12 hr 1 mg PO DIRECTED 01/13/24 08/26/24 sustained-release escitalopram oxalate 10 mg tablet 10 mg PO DIRECTED 01/13/24 08/26/24 hydroxyzine HCl 25 mg tablet 25 mg PO DIRECTED 01/13/24 08/26/24 lisinopril 20 mg tablet 20 mg PO DAILY 08/24/24 08/26/24 Allergies Allergy/AdvReac Type Severity Reaction Status Date / Time shrimp Allergy Severe Anaphylactic Verified 08/26/24 08:12 Shock Penicillins Allergy Mild Nausea Verified 08/26/24 08:12 codeine Allergy Unknown Unknown Verified 08/26/24 08:12 Review of Systems Review of Systems: Pertinent positives per HPI. Patient denies any fever, chills, rash, headache, visual changes, dizziness, cough, shortness of breath, chest pain, palpitations, nausea, vomiting, diarrhea, constipation, abdominal pain, or any urinary issues. [facility] Past Medical History Medical History History of anxiety Surgical History Surgical History H/O foot surgery Social History Social History Smoking status: Current some day smoker Alcohol intake: current Substance use: never Do You Feel Safe in your Home?: Yes Lack of Transportation: No Lack of Food: Never True Current Housing: I Have Housing Concerned About Future Housing: No Difficulty Paying Gas/Electric Bills: No Difficulty Paying for Meds: No Currently Unemployed: No Education: Trade/Vocational Certificate Difficulty w/ Childcare or Family Care: No Living arrangements: with family Occupation/Education: occupation Additional occupation/education comments: [employer] Gender identity (if verbalized by the patient): Female Comments At the time of my signature, I reviewed and agree with the nursing past medical, surgical, social, and family history. There is no relevant family history pertinent to the patient complaint. Exam Narrative: General: Well-developed, well nourished, in no apparent distress Head: Normocephalic, atraumatic Eyes: Pupils equally round and reactive to light bilaterally, EOM intact, sclera and conjunctive clear, no discharge, lids normal Ears: TMs intact and clear, ear canals clear, no drainage, grossly hearing normal. Nose: Nares patent, no discharge, no inflammation, no sinus tenderness. Mouth: Oral pharynx without lesions or masses, good dentition, MMM. Neck: Supple, trachea midline, no enlargement of anterior or posterior cervical nodes, no thyroid masses or goiter palpable. Cardio: Regular rate and rhythm, s1 and s2 normal, no murmur appreciated. Resp: Clear to auscultation bilaterally, no rhonchi, rales, wheezing or rubs Course Course Emergency Course: Portions of this record may have been created with voice recognition software. Level of Care: Express Care Visit Vital Signs Vital signs: Vital Signs Temperature 36.7 C 08/26/24 08:14 Pulse Rate 91 08/26/24 08:14 Respiratory Rate 16 08/26/24 08:14 Blood Pressure 148/86 H 08/26/24 08:14 Pulse Oximetry 98 08/26/24 08:14 Oxygen Delivery Room Air 08/26/24 08:14 Temperature 36.7 C 08/26/24 08:14 Pulse Rate 91 08/26/24 08:14 Respiratory Rate 16 08/26/24 08:14 Blood Pressure 148/86 H 08/26/24 08:14 Pulse Oximetry 98 08/26/24 08:14 Oxygen Delivery Room Air 08/26/24 08:14 Vital signs reviewed MDM - URI/Sore Throat MDM Narrative Medical decision making narrative: At the time of visit patient is resting comfortably on the exam table. Patient appears to be nontoxic. Diagnostics: Chest x-ray shows right lower lobe pneumonia. Plan: Patient's right lower lobe pneumonia. Will place patient on Levaquin. Supportive measures were discussed with the patient and they voiced understanding discharge instructions and agrees to treatment plan. Return precautions reviewed Differential Diagnosis Differential diagnosis: Likely upper respiratory infection, otitis media, sinusitis, viral infection, bronchitis, influenza, pharyngitis and other (COVID) Imaging Data Radiologist's impression: ITS Impressions Chest X-Ray 08/26/24 08:38 IMPRESSION: 1. Right lower lobe pneumonia. Discharge Plan Discharge Clinical Impression: Right lower lobe pneumonia Qualifiers: Pneumonia type: due to unspecified organism Qualified Code(s): J18.9 - Pneumonia, unspecified organism Patient Disposition: Home, Self-Care Condition: Stable Instructions: Antibiotic Form, Pneumonia (ED) Additional Instructions: Take prescription medications only as prescribed-Levaquin Hold taking hydroxyzine while taking the Levaquin Increase fluids and stay well hydrated Tylenol/motrin for pain/fever Flonase and OTC antihistamines as directed Vicks vapor rub to open sinuses Sinus rinses for congestion Cepacol spray, cough drops, throat lozenges, warm tea with honey/lemon, gargle salt water to soothe throat BRAT diet for diarrhea Clear liquids x 24 hours then advance as tolerated for nausea/vomiting Go to the ED if you develop a worsening in your condition- high fever not controlled by Tylenol or Motrin, dehydration, weakness, lethargy, shortness of breath, or chest pain. Follow up with your PCP in 3-5 days if symptoms persist. Prescriptions: New levofloxacin 750 mg tablet 750 mg PO DAILY 7 Days Qty: 7 0RF No Action bupropion HCl 100 mg tablet sustained-release 12 hr 1 mg PO DIRECTED escitalopram oxalate 10 mg tablet 10 mg PO DIRECTED hydroxyzine HCl 25 mg tablet 25 mg PO DIRECTED lisinopril 20 mg tablet 20 mg PO DAILY benzonatate 100 mg capsule 100 mg PO BID PRN (Reason: cough) Qty: 14 0RF albuterol sulfate 90 mcg/actuation HFA aerosol inhaler 2 puff inhalation QID PRN (Reason: shortness of breath or wheezing) Qty: 6.7 0RF (DME) Aerochamber MV Spacer See Rx Instructions .Route Qty: 1 0RF Rx Instructions: As directed epinephrine 0.3 mg/0.3 mL auto-injector 0.3 mg IM ONCE Qty: 2 0RF Rx Instructions: as a single dose; may repeat once diphenhydramine HCl [Benadryl] 25 mg capsule 25 mg PO TID PRN (Reason: allergic reaction) Qty: 30 0RF zolpidem 10 mg tablet 10 mg PO HS Aurovela 24 Fe 1 mg-20 mcg (24)/75 mg (4) tablet 1 tablet PO ONCE Qty: 84 3RF Follow-up/Referrals: Joseph,LISA Pool [Primary Care Provider] - Stand Alone Forms: Work/School Release IP Time of Disposition: 08:46 Quality NIHSS Nursing Documentation ED NIHSS nursing documentation: reviewed/agree
[2024-08-26 08:14] VITALS: BP 148/86; PULSE 91; RESP 16; TEMP 36.7; O2SAT 98
== END 2024-08-26 08:52 | disposition home or self-care (01) ==
PROVIDERS: Emergency Provider Nurse Practitioner Family; PCP Physician Assistant
DX: J18.1 Lobar pneumonia, unspecified organism (principal); F17.200 Nicotine dependence, unspecified, uncomplicated; F41.9 Anxiety disorder, unspecified
CPT/HCPCS: 71046; 99213; G0463

== ENCOUNTER 2024-12-28 14:26 | Emergency (ER) | payer BC, SELFPAY ==
--- NOTE | 2024-12-28 14:30 | ED.URI ---
HPI - URI/Sore Throat General Chief Complaint: Upper Respiratory Infection Stated Complaint: Sinus/Ears Irritation Time Seen by Provider: 12/28/24 14:38 Source: patient, RN notes reviewed and old records reviewed Mode of arrival: ambulatory Limitations: no limitations History of Present Illness HPI Narrative: 34-year-old female presents to the [facility] with 3 day history of sinus congestion, ear discomfort. Denies fevers. Has taken naproxen, ibuprofen, Zyrtec D and Flonase. Patient most concerned that she has an ear infection. Treatments prior to arrival: acetaminophen, ibuprofen and cold medicine Related Data Home Medications ?Medication ?Instructions ?Recorded ?Confirmed ?Last Taken ?Type zolpidem 10 mg tablet 10 mg PO HS 12/03/20 08/26/24 Unknown History bupropion HCl 100 mg tablet,12 hr 1 mg PO DIRECTED 01/13/24 08/26/24 Unknown History sustained-release escitalopram oxalate 10 mg tablet 10 mg PO DIRECTED 01/13/24 08/26/24 Unknown History hydroxyzine HCl 25 mg tablet 25 mg PO DIRECTED 01/13/24 08/26/24 Unknown History lisinopril 20 mg tablet 20 mg PO DAILY 08/24/24 08/26/24 Unknown History Allergies Allergy/AdvReac Type Severity Reaction Status Date / Time shrimp Allergy Severe Anaphylactic Verified 12/28/24 14:29 Shock Penicillins Allergy Mild Nausea Verified 12/28/24 14:29 codeine Allergy Unknown Unknown Verified 12/28/24 14:29 Review of Systems Review of Systems: All systems reviewed & are unremarkable except as noted in HPI and below Constitutional: Constitutional: Reports no additional constitutional complaints ENT: Reports as per HPI Cardiovascular: Cardiovascular: Reports no additional cardiovascular complaints, Denies chest pain and Denies dyspnea Respiratory: Respiratory: Reports no additional respiratory complaints, Denies chest congestion, Denies cough and Denies dyspnea Musculoskeletal: Musculoskeletal: Reports no additional musculoskeletal complaints Integumentary/Breasts: Skin/Breast: Reports system reviewed and no additional complaints, except as docu PMFSH Past Medical History Medical History History of anxiety Surgical History Surgical History H/O foot surgery Social History Social History Smoking status: Current some day smoker Alcohol intake: current Substance use: never Do You Feel Safe in your Home?: Yes Lack of Transportation: No Lack of Food: Never True Current Housing: I Have Housing Concerned About Future Housing: No Difficulty Paying Gas/Electric Bills: No Difficulty Paying for Meds: No Currently Unemployed: No Education: Trade/Vocational Certificate Difficulty w/ Childcare or Family Care: No Living arrangements: with family Occupation/Education: occupation Additional occupation/education comments: [employer] Gender identity (if verbalized by the patient): Female Comments At the time of my signature, I reviewed and agree with the nursing past medical, surgical, social, and family history. There is no relevant family history pertinent to the patient complaint. Exam Const: General: cooperative, healthy appearing, comfortable, no acute distress, well developed, alert and well nourished Nutritional Appearance: well nourished Orientation/consciousness: patient oriented x3 Limitations: no limitations HENMT: Head: normal to inspection Ears: hearing grossly normal bilaterally, external ears normal, EAC's normal, mastoids normal, no periauricular adenopathy and TM abnormal with fluid behind the TM bilateral Face/Nose/Sinus: Normal external nose present, Normal nares present and No nasal discharge present Throat: posterior oropharynx normal, uvula midline, postnasal drainage and no uvular edema Eyes: General: appearance normal, both eyes and all related structures Alignment and Position: alignment normal Neck: Neck: normal visual inspection, full ROM, no lymphadenopathy and no meningeal signs Chest: Chest palpation & inspection: normal inspection of the chest Resp: Effort & Inspection: normal respiratory effort and able to speak in complete sentences Auscultation: clear to auscultation bilaterally, no crackles, no rales, no rhonchi and no wheezes Cardio: Rate: regular rate Skin: General skin exam: normal color and no rashes or lesions noted Neuro: General: patient oriented x3, gait normal, moves all extremities and no meningeal signs Cognition (Neuro): normal cognition Speech: normal speech Gait exam (Neuro): Normal gait present Extrem: General: normal to inspection, full ROM, capillary refill normal and normal gait Psych: Appearance: grossly normal and well kempt Mental Status: mental status grossly normal Speech and movement: Normal speech and movement present and Clear speech present Affect: normal affect Attitude: cooperative Course Course Level of Care: Express Care Visit Vital Signs Vital signs: Vital Signs Temperature 97.1 F L 12/28/24 14:32 Pulse Rate 85 12/28/24 14:32 Respiratory Rate 20 12/28/24 14:32 Blood Pressure 147/73 H 12/28/24 14:32 Pulse Oximetry 99 12/28/24 14:32 Oxygen Delivery Room Air 12/28/24 14:32 Temperature 97.1 F L 12/28/24 14:32 Pulse Rate 85 12/28/24 14:32 Respiratory Rate 20 12/28/24 14:32 Blood Pressure 147/73 H 12/28/24 14:32 Pulse Oximetry 99 12/28/24 14:32 Oxygen Delivery Room Air 12/28/24 14:32 Reviewed MDM - URI/Sore Throat MDM Narrative Medical decision making narrative: Patient sitting comfortably exam room nontoxic stable patient acute distress. Patient presents with 3 day history of sinus congestion. Patient most concern for an otitis media. No erythema noted to the TMs. Patient's exam most consistent with viral URI. Did offer flu, COVID testing, patient declined at this time Patient appropriate for outpatient treatment with close follow-up Discharge instructions reviewed with patient, as well as provided in writing per nursing staff. The instructions also include specific and strict return/GO TO THE ER as well as f/u information. All questions have been answered, and the patient deny any further questions with discharge and discharge plan. Some parts of this dictation were generated by voice recognition software and may contain typographical and/or grammatical inaccuracies. Differential Diagnosis Differential diagnosis: Likely upper respiratory infection, otitis media, sinusitis, viral infection, influenza and pharyngitis Critical Care Time Critical Care Time Critical Care Time: No Discharge Plan Discharge Clinical Impression: PND (post-nasal drip) Sinusitis Qualifiers: Sinusitis location: unspecified location Chronicity: acute Recurrence: not specified as recurrent Qualified Code(s): J01.90 - Acute sinusitis, unspecified Patient Disposition: Home Condition: Stable Instructions: Antibiotic Form, Sinusitis (ED), Postnasal Drip (DC) Additional Instructions: Typically viral infections last 7-10 days, can linger for couple of weeks. It is very important to treat your symptoms. Drink plenty of water, Gatorade, Pedialyte, ice pops or Jell-O. -Alternate Tylenol and Motrin per package directions for fever or pain. You can alternate every 4 hours -Antihistamine medication such as Zyrtec/Claritin/Kiley during the day can help improve symptoms. -doing daily nasal irrigations can help relieve pressure your sinuses. Things like a Neti pot -Use Flonase twice a day for 5 days then daily to help reduce the inflammation and dry up your sinuses. -You can also use Mucinex. Be sure to drink plenty of water with this medication at least 8 ounces with every dose and it is important to drink 8 to 10 glasses of water per day. Water is a natural decongestant -Eat and drink things that are easy to swallow, like tea or soup, or popsicles. -Oral rinses such as: Salt water gargles and/or may use topical anesthetic (eg. Chloraseptic spray) or lozenges to relieve dryness or throat pain). -Frequent hand washing or hand automobile and property underwriter is one of the best ways to prevent spread of infection. -Using a vaporizer or humidifier at night will also help thin secretions and help with coughing up phlegm. -Follow up with primary care provider in 7-10 days if condition is not improving - For new or worsening symptoms go directly to the nearest ER Patient Language: Norwegian Prescriptions: No Action bupropion HCl 100 mg tablet sustained-release 12 hr 1 mg PO DIRECTED escitalopram oxalate 10 mg tablet 10 mg PO DIRECTED hydroxyzine HCl 25 mg tablet 25 mg PO DIRECTED lisinopril 20 mg tablet 20 mg PO DAILY epinephrine 0.3 mg/0.3 mL auto-injector 0.3 mg IM ONCE Qty: 2 0RF Rx Instructions: as a single dose; may repeat once diphenhydramine HCl [Benadryl] 25 mg capsule 25 mg PO TID PRN (Reason: allergic reaction) Qty: 30 0RF zolpidem 10 mg tablet 10 mg PO HS Aurovela 24 Fe 1 mg-20 mcg (24)/75 mg (4) tablet 1 tablet PO ONCE Qty: 84 3RF Follow-up/Referrals: Joseph,LISA Pool [Primary Care Provider] - 1 Week ([facility] follow-up) Stand Alone Forms: Work/School Release IP Time of Disposition: 14:46
[2024-12-28 14:32] VITALS: BP 147/73; PULSE 85; RESP 20; TEMP 36.2; O2SAT 99
== END 2024-12-28 14:55 | disposition home or self-care (01) ==
PROVIDERS: Emergency Provider Nurse Practitioner; PCP Physician Assistant
DX: R09.82 Postnasal drip (principal); J01.90 Acute sinusitis, unspecified; F17.200 Nicotine dependence, unspecified, uncomplicated; F41.9 Anxiety disorder, unspecified
CPT/HCPCS: 99213; G0463

== ENCOUNTER 2025-08-20 16:30 | Emergency (ER) | payer BC, SELFPAY ==
[2025-08-20 16:41] VITALS: BP 124/96; PULSE 95; RESP 18; TEMP 36.7; O2SAT 98
--- NOTE | 2025-08-20 16:41 | ED.URI ---
HPI - URI/Sore Throat General Chief Complaint: Upper Respiratory Infection Stated Complaint: sinus congestion/sore throat Patient presents to the [facility] with complaints of sore throat, nasal congestion, headaches, fatigue, chills, mild cough that began about 3 days ago. Noted worsening last night that was woken up several times due to sore throat. Patient has been using some [id number] cough cold medication with minimal relief of symptoms. No known sick contacts. Denies known fever, dizziness, difficulty swallowing, shortness of breath, nausea, vomiting, diarrhea Related Data Home Medications ?Medication ?Instructions ?Recorded ?Confirmed ?Last Taken ?Type zolpidem 10 mg tablet 10 mg PO HS 12/03/20 02/21/25 Unknown History bupropion HCl 100 mg tablet,12 hr 1 mg PO DIRECTED 01/13/24 02/21/25 Unknown History sustained-release escitalopram oxalate 10 mg tablet 10 mg PO DIRECTED 01/13/24 02/21/25 Unknown History hydroxyzine HCl 25 mg tablet 25 mg PO DIRECTED 01/13/24 02/21/25 Unknown History lisinopril 20 mg tablet 20 mg PO DAILY 08/24/24 02/21/25 Unknown History Allergies Allergy/AdvReac Type Severity Reaction Status Date / Time shrimp Allergy Severe Anaphylactic Verified 08/20/25 16:31 Shock Penicillins Allergy Mild Nausea Verified 08/20/25 16:31 codeine Allergy Unknown Unknown Verified 08/20/25 16:31 Review of Systems Constitutional: Constitutional: Reports as per HPI, Denies chills, Reports fatigue, Denies fever(s) and Denies weakness Eyes: Eyes: Reports no additional eye complaints ENT: Reports as per HPI, Denies vertigo, Denies dizziness, Reports nasal congestion and Reports sore throat Comments: pressure in ears Cardiovascular: Cardiovascular: Reports no additional cardiovascular complaints Respiratory: Respiratory: Reports as per HPI, Denies chest congestion, Reports cough, Denies dyspnea and Denies wheezing Gastrointestinal: Gastrointestinal: Reports as per HPI, Denies abdominal pain, Denies diarrhea, Denies nausea and Denies vomiting Genitourinary: Genitourinary: Reports no additional female genitourinary complaints Musculoskeletal: Musculoskeletal: Reports as per HPI, Denies back pain and Denies myalgias Integumentary/Breasts: Skin/Breast: Reports as per HPI, Denies erythema and Denies rash Neurologic: Reports as per HPI, Denies vertigo, Denies dizziness, Reports headache(s), Denies numbness and Denies weakness Psychiatric: Psychiatric: Reports no additional psychiatric complaints Endocrine: Endocrine: Reports no additional endocrine complaints Hematologic/Lymphatic: Hematologic/Lymphatic: Reports no additional hematologic/lymphatic complaints Allergic/Immunologic: Allergic/Immunologic: Reports as per HPI Comments: seasonal allergies PMFSH Past Medical History Medical History History of anxiety Surgical History Surgical History H/O foot surgery Social History Social History Smoking status: Current some day smoker Alcohol intake: current Substance use: never Lack of Transportation: No Lack of Food: Never True Current Housing: I Have Housing Concerned About Future Housing: No Difficulty Paying Gas/Electric Bills: No Difficulty Paying for Meds: No Currently Unemployed: No Education: Trade/Vocational Certificate Difficulty w/ Childcare or Family Care: No Living arrangements: with family Occupation/Education: occupation Additional occupation/education comments: [employer] Gender identity (if verbalized by the patient): Female Exam Const: General: healthy appearing and no acute distress Nutritional Appearance: well nourished Orientation/consciousness: patient oriented x3 Limitations: no limitations HENMT: Head: normal to inspection Ears: external ears normal and TM's abnormal bilaterally ( moderate clear fluid no loss of bony landmarks. ) Neck: Neck: normal visual inspection and lymphadenopathy ( bilateral anterior cervical) Resp: Effort & Inspection: normal respiratory effort Auscultation: clear to auscultation bilaterally Cardio: Rate: regular rate Rhythm: regular rhythm Skin: General skin exam: normal color Rashes: no rashes Wounds: no wounds Neuro: General: patient oriented x3 Speech: normal speech Gait exam (Neuro): Normal gait present Psych: Mental Status: mental status grossly normal Affect: normal affect Attitude: cooperative Course Course Level of Care: Express Care Visit MDM - URI/Sore Throat MDM Narrative Medical decision making narrative: Flu, strep, COVID negative no significant abnormal symptoms noted on exam. The patient was evaluated by myself in the express care. History is obtained from patient who is an independent historian and physical exam was performed. Available medical records were reviewed at this time. Exam findings show no acute concerns or changes; patient is non-toxic appearing and is in no distress. Patient is appropriate for outpatient treatment and follow-up. I have evaluated and discussed social determinants of health with the patient that could potentially impact subsequent diagnosis and treatment plans. Differential diagnosis and treatment plan were discussed with the patient. Patient agrees with discussion and after shared medical decision making agrees with plan of care. All questions were answered to the patient's satisfaction. Differential Diagnosis Differential diagnosis: Likely upper respiratory infection, croup, otitis media, sinusitis, viral infection, bronchitis, influenza and pharyngitis Medical Records Attestation: I reviewed the patient's medical records. Lab Data Attestation: I reviewed the patient's lab results. Discharge Plan Discharge Clinical Impression: Upper respiratory infection Patient Disposition: Home Condition: Stable Instructions: Antibiotic Form, Upper Respiratory Infection (ED), Cold Symptoms (ED) Additional Instructions: Viral illness may last between 7-12days; antibiotic is NOT recommended at this time. Recommend antihistamine such as Benadryl at night time and Claritin/Zyrtec/Kiley during the day. Also using steroid nasal spray like Flonase can help with symptoms and congestion. Using sudafed for significant congestion will also give some relief. Cough syrup may cause drowsiness; avoid driving or take it at night time. Use inhaler as needed for cough, wheezing, shortness of breath or chest tightness. Also, recommend symptomatic treatment includes: rest, fluids, increase humidity of the air at home. Recommend Acetaminophen or nonsteroidal anti-inflammatory agents(NSAIDs) as directed in the bottle to reduce fever and/pain/headache. Avoid smoking/second-hand smoke. Limit visits to areas with large crowds. Frequent hand washing or hand senior technical support engineer is one of the best ways to prevent spread of infection. Please schedule a followup visit with your personal physician for further evaluation and treatment within 3-5days. Including recheck and discussion of your blood pressure. If your symptoms persist, change or worsen significantly before you can contact your personal physician then please, without delay, go to the emergency department for further evaluation. Patient Language: Lao Prescriptions: New methylprednisolone [Medrol (Jovanni)] 4 mg tablets,dose pack See Rx Instructions .ROUTE .COMPLEX Qty: 21 0RF Rx Instructions: for 6 days No Action bupropion HCl 100 mg tablet sustained-release 12 hr 1 mg PO DIRECTED escitalopram oxalate 10 mg tablet 10 mg PO DIRECTED hydroxyzine HCl 25 mg tablet 25 mg PO DIRECTED lisinopril 20 mg tablet 20 mg PO DAILY epinephrine 0.3 mg/0.3 mL auto-injector 0.3 mg IM ONCE Qty: 2 0RF Rx Instructions: as a single dose; may repeat once diphenhydramine HCl [Benadryl] 25 mg capsule 25 mg PO TID PRN (Reason: allergic reaction) Qty: 30 0RF zolpidem 10 mg tablet 10 mg PO HS Aurovela 24 Fe 1 mg-20 mcg (24)/75 mg (4) tablet 1 tablet PO DAILY Qty: 84 3RF Follow-up/Referrals: Joseph,LISA Pool [Primary Care Provider, Unknown] Time of Disposition: 17:05
[2025-08-20 17:07] LABS: EDSTREPNEGPOS1 Negative (Negative)
[2025-08-20 17:08] LABS: EDCOVIDSCREEN Negative (Negative); EDINFLUASCREEN Negative (Negative); EDINFLUBSCREEN Negative (Negative)
== END 2025-08-20 17:08 | disposition home or self-care (01) ==
PROVIDERS: Emergency Provider Nurse Practitioner Family; PCP Physician Assistant
DX: J06.9 Acute upper respiratory infection, unspecified (principal); Z20.822 Contact with and (suspected) exposure to COVID-19; F17.200 Nicotine dependence, unspecified, uncomplicated; F41.9 Anxiety disorder, unspecified
CPT/HCPCS: 87081; 87426; 87804; 87880; 99213; G0463